=== PATIENT | female | born 1995 | race Caucasian/White ===

== ENCOUNTER 2016-07-28 18:47 | Emergency (ER) | payer MEDICAID ==
[~2016-07-28] VITALS: Ht 157.5 cm; Wt 59.0 kg
[2016-07-28] MEDS ORDERED: PRENATAL1 TA1 PO (19:03)
[2016-07-28] MEDS ORDERED: HYDROCORTI30 GM/TUB1 TP (19:42)
--- NOTE | 2016-07-28 19:43 | Urgent Treatment Center Report ---
History of Present Issue Date/Time Seen by Provider 07/28/161924 Visit Reason Pt arrived:Walked Presenting Problem:PT HAS ATUL RAISED AREAS ON THE RIGHT ELBOW Location if Accident: Onset of symptoms date/time:/ or onset unknown for:MEDICAL HX UNKNOWN Have you (or family members/close friends) recently traveled outside the [place]? N If Yes, where/when: Have you had exposure to infectious disease within the past month? TB? Other? Specify: c/o possible spider bites to right elbow. First noticed two while at work yesterday then put on coat to leave work, felt something, took off coat and noticed two more. Red, raised, round, itchy, not painful lesions. Unchanged since first noticed. Itching improved w/ benadryl stick. Hasn't taken or tried anything else as just found out , early first trimester. No fever, aches, chills, drainage. No one else w/ similiar lesions. Source patient Exam Limitations no limitations ALLERGIES Coded Allergies: No Known Allergies (07/28/16) Home Medications Reported Medications VIT#96/FERROUS FUM/FA ( Tablet) 1 TAB PO DAILY #30 History Medical History General CAD? No Angina: No [place]: No Hypertension? No Hyperlipidemia? No CHF? No DVT? No PE? No COPD? No Asthma? No Anemia? No GERD? No Gastric ulcers? No GI Bleed? No Hernia? No Thyroid Problems? No Hypothyroidism? No CVA? No Seizures? No Diabetes? No Renal Insuffiency? No UTI? No Stones? No BPH? No GB Disease: No Nephritic Syndrome? No Asplenia? No Hepatitis? No Sickle Cell Disease? No Arthritis? No Migraines? No Cataracts? No Glaucoma? No MRSA? No HIV? No TB? No Anxiety? No Depression? No Cancer? No More? 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 Respiratory denies see HPI Gastrointestinal denies nausea, denies vomiting Skin see HPI Physical Exam Vital Signs Vital Signs Date Time Temp Pulse Resp B/P Pulse O2 O2 Flow FiO2 Ox Delivery Rate 07/28 1944 99.4 98 16 132/95 99 07/28 1900 99.4 98 16 132/95 99 General Appearance normal appearance Respiratory Status No: respiratory distress. Cardiovascular no peripheral edema Neurologic alert Skin warm/dry, lesions, four red, round, slightly erythematous lesions to right elbow/proximal FA consistent w/ insect bites. vary from approx 4-5mm to 7-8mm No sign of infection. Medical Decision Making LABS/Meds/Orders Pt receiving controlled substance in ED? No Departure Departure Time of Disposition 1932 Disposition DC Home or Self Care(routine) Clinical Impression Primary Impression: Insect bite (nonvenomous) of right elbow, initial encounter Condition STABLE Referrals Meaghan GARCIA,Maikel (Family) Dr. Harding, [facility], ER immediately for any new or worsening symptoms or if no noticeable improvement over next 48-72 hours. Patient Instructions DI for Insect Bites and Stings, Medications and Additional Instructions Each lesion outlined w/ permanent marker for easier monitoring. Topical low dose steroid twice a day. Clean w/ normal soap and water. Pat dry. Long sleeve shirt while at work. Monitor closely and seek treatment immediately for new or worsening symptoms, concerns for infection, flu like symptoms. Discharge Counseling Counseled pt/family regarding diagnosis, medications/RX, home care, follow up needs Prescriptions Current Visit Scripts HYDROCORTISONE (Hydrocortisone 1% Cream 30GM Tube) 1 EUNICE TP BID #30 GM pt aware insurance may not cover, otc at 2150
--- NOTE | 2016-07-28 19:43 | Urgent Treatment Center Report ---
History of Present Issue Date/Time Seen by Provider 07/28/161924 Visit Reason Pt arrived:Walked Presenting Problem:PT HAS ATUL RAISED AREAS ON THE RIGHT ELBOW Location if Accident: Onset of symptoms date/time:/ or onset unknown for:MEDICAL HX UNKNOWN Have you (or family members/close friends) recently traveled outside the [place]? N If Yes, where/when: Have you had exposure to infectious disease within the past month? TB? Other? Specify: c/o possible spider bites to right elbow. First noticed two while at work yesterday then put on coat to leave work, felt something, took off coat and noticed two more. Red, raised, round, itchy, not painful lesions. Unchanged since first noticed. Itching improved w/ benadryl stick. Hasn't taken or tried anything else as just found out , early first trimester. No fever, aches, chills, drainage. No one else w/ similiar lesions. Source patient Exam Limitations no limitations ALLERGIES Coded Allergies: No Known Allergies (07/28/16) Home Medications Reported Medications VIT#96/FERROUS FUM/FA ( Tablet) 1 TAB PO DAILY #30 History Medical History General CAD? No Angina: No [place]: No Hypertension? No Hyperlipidemia? No CHF? No DVT? No PE? No COPD? No Asthma? No Anemia? No GERD? No Gastric ulcers? No GI Bleed? No Hernia? No Thyroid Problems? No Hypothyroidism? No CVA? No Seizures? No Diabetes? No Renal Insuffiency? No UTI? No Stones? No BPH? No GB Disease: No Nephritic Syndrome? No Asplenia? No Hepatitis? No Sickle Cell Disease? No Arthritis? No Migraines? No Cataracts? No Glaucoma? No MRSA? No HIV? No TB? No Anxiety? No Depression? No Cancer? No More? 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 Respiratory denies see HPI Gastrointestinal denies nausea, denies vomiting Skin see HPI Physical Exam Vital Signs Vital Signs Date Time Temp Pulse Resp B/P Pulse O2 O2 Flow FiO2 Ox Delivery Rate 07/28 1944 99.4 98 16 132/95 99 07/28 1900 99.4 98 16 132/95 99 General Appearance normal appearance Respiratory Status No: respiratory distress. Cardiovascular no peripheral edema Neurologic alert Skin warm/dry, lesions, four red, round, slightly erythematous lesions to right elbow/proximal FA consistent w/ insect bites. vary from approx 4-5mm to 7-8mm No sign of infection. Medical Decision Making LABS/Meds/Orders Pt receiving controlled substance in ED? No Departure Departure Time of Disposition 1932 Disposition DC Home or Self Care(routine) Clinical Impression Primary Impression: Insect bite (nonvenomous) of right elbow, initial encounter Condition STABLE Referrals Meaghan GARCIA,Maikel (Family) Dr. Harding, [facility], ER immediately for any new or worsening symptoms or if no noticeable improvement over next 48-72 hours. Patient Instructions DI for Insect Bites and Stings, Medications and Additional Instructions Each lesion outlined w/ permanent marker for easier monitoring. Topical low dose steroid twice a day. Clean w/ normal soap and water. Pat dry. Long sleeve shirt while at work. Monitor closely and seek treatment immediately for new or worsening symptoms, concerns for infection, flu like symptoms. Discharge Counseling Counseled pt/family regarding diagnosis, medications/RX, home care, follow up needs Prescriptions Current Visit Scripts HYDROCORTISONE (Hydrocortisone 1% Cream 30GM Tube) 1 EUNICE TP BID #30 GM pt aware insurance may not cover, otc at 2157
[2016-07-28 19:45] VITALS: BP 132/95
[2016-09-28] MEDS ORDERED: MAKENA250 MG/1 M IM (09:32)
[2016-09-28] MEDS ORDERED: MACROBID100 M3 PO (10:10)
== END 2016-07-28 19:46 | disposition home or self-care (01) ==
LOC: UTC 18:47
DX: S50.361A Insect bite (nonvenomous) of right elbow, initial encounter (principal); Z33.1 Pregnant state, incidental